=== PATIENT | male | born 1945 | race Caucasian/White ===

== ENCOUNTER 2017-12-30 16:47 | Emergency (ER) | payer BC, SELFPAY ==
[2017-12-30] VITALS (16 sets, daily range): BP systolic 164–192; BP diastolic 97–115; PULSE 58–69; RESP 11–23; TEMP 37.1; O2SAT 93–98
[2017-12-30 17:33] LABS: Abs Immature Grans 0.01 k/cumm (0.0-0.09); Absolute Basophil Count 0.03 k/cumm (0.0-0.2); Absolute Eosinophil Count 0.15 k/cumm (0.0-0.7); Absolute Lymphocyte Count 1.95 k/cumm (1.2-3.4); Absolute Monocyte Count 0.84 k/cumm (0.11-0.7); Basophils % 0.4; Eosinophils % 1.8; HCT 42.5 % (40.0-50.0); HGB 14.4 g/dL (13.5-17.5); Immature Grans % 0.1; Lymphocytes % 23.3; Mean Corp. HGB Concentration 33.9 g/dL (32.0-36.0); Mean Corpuscular Hemoglobin 32.3 pg (27.0-33.0); Mean Corpuscular Volume 95.3 fL (80-95); Mean Platelet Volume 9.4 fL (8.0-11.0); Neutrophils % 64.4; Platelet Count 220 x1000/uL (130-400); RBC 4.46 m/cumm (4.50-6.00); RBC Distribution Width 17.6 % (11.8-14.1); White Blood Cell Count 8.38 k/cumm (4.4-10.8)
[2017-12-30] MEDS: Normal Saline 500 ML 1000 ML IV (17:35)
[2017-12-30] MEDS: Meclizine 25 MG TAB PO (17:36)
[2017-12-30 17:51] LABS: ALT 26 U/L (12-78); AST 16 U/L (15-37); Albumin 3.7 g/dL (3.4-5.0); Alkaline Phosphatase 94 U/L (46-116); BUN 18 mg/dL (7-18); Bilirubin, Total 0.4 mg/dL (0.2-1.0); CREATININE 0.96 mg/dL (0.70-1.30); Calcium 8.9 mg/dL (8.5-10.1); Chloride 103 mmol/L (98-107); Glucose 159 mg/dL (70-100); Potassium 4.3 mmol/L (3.5-5.1); Sodium 139 mmol/L (136-145); TSH 2.41 uIU/mL (0.358-3.74); Total Protein 7.3 g/dL (6.4-8.2)
[2017-12-30 17:52] LABS: Troponin I < 0.02 ng/mL (0.00-0.06)
--- NOTE | 2017-12-30 18:45 | W.ED.GENAD ---
Discharge Plan Disposition Patient Disposition: HOME Condition: Good Discharge Details Chief Complaint: GenMedical Clinical Impression: Vertigo, Hypertension Primary Care Provider: Heriberto Fry ED Provider: Pasquale Gilliam Home Meds and New Rx's Prescriptions: New meclizine 25 mg tablet 25 mg PO TID Qty: 30 RF: 0 No Action ASPIRIN 81 MG tablet 1 tab PO DAILY RF: 0 glucosamine sulfate 500 MG tablet 4 tab PO DAILY RF: 0 omega-3 fatty acids-fish oil [Fish Oil] 1 EACH capsule 1 ea PO BID RF: 0 flaxseed 1,000 MG capsule 1,000 mg PO BID RF: 0 vitamin B complex 1 EACH capsule 1 ea PO DAILY RF: 0 magnesium oxide 500 MG capsule 500 mg PO DAILY RF: 0 sertraline 100 MG tablet 100 mg PO DAILY Qty: 90 RF: 3 levothyroxine 137 MCG tablet 137 mcg PO DAILY Qty: 90 RF: 3 omeprazole 20 MG capsule,delayed release(DR/EC) 20 mg PO DAILY Qty: 30 RF: 4 pravastatin 20 MG tablet 1 tab PO DAILY Qty: 90 RF: 3 losartan-hydrochlorothiazide [Hyzaar] 1 EACH tablet 1 tab PO DAILY Qty: 90 RF: 4 Metoprolol Succinate 50 MG TAB.ER.24H 1 tab PO DAILY Qty: 130 RF: 3 nicotine (polacrilex) [Nicorelief] 2 MG gum 1 ea PO PRN PRNRF: 0 varenicline [Chantix] 1 mg Tablet 1 mg PO DAILY RF: 0 Discharge Instructions Instructions: Vertigo (ED), Hypertension (ED) Additional Instructions: Please avoid salty foods, cut down on caffeine, and stay well-hydrated. Please take the meclizine as directed. Please follow-up with your ear doctor as soon as possible for reassessment. if you notice any worsening of your symptoms, or any new symptoms such as vomiting, diarrhea, fever, chills, shortness of breath, chest pain, numbness, weakness, or fainting , please return immediately to the emergency department for reevaluation. Please follow up with your primary care provider as soon as possible for reassessment and reevaluation. As always, it was a pleasure participating in your medical care today. Referrals: Heriberto Fry, [Primary Care Provider] - Discharge Data Discharge Date/Time-TO BE ENTERED AT DEPARTURE: 12/30/17 19:27 Medical Decision Making This is a pleasant 72-year-old male who presents for evaluation of dizziness and lightheadedness. Patient states that he noticed his blood pressure to be elevated earlier today, and he then had a relatively rapid onset of mild dizziness. It is worse with movement of his head to both the left and the right. He has horizontal fatigable nystagmus, he shows no neurologic deficits on exam. Patient's blood pressure was elevated initially when he came in, however his heart rate was stable. During his time here in the emergency department his blood pressure came down notably. Patient was given meclizine and had notable improvement of his symptoms. He was gently rehydrated. Laboratory workup, troponin, EKG were all within normal limits at the patient's baseline. 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 I feel that his endolymph is most likely affected by his high blood pressure and higher than normal salt content. With no signs of neurologic deficit, no chest pain, no arm neck shoulder pain. No abdominal pain or physical exam abnormalities I feel that he can be safely discharged home with close follow-up. 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 We long discussion regarding red flags which to return, foods for which to avoid, and the importance of adherence to his medication therapy. I have extensively reviewed the treatment plan and discharge instructions with the patient. I have addressed all patient concerns at this time. The patient was made aware of what symptoms to monitor for that would warrant a return to the emergency department. Discussed the plan with the patient, they demonstrate verbal understanding and agreement with our assessment and plan at this time. EK:56 Rate 61, intervals normal, sinus rhythm, RSR prime noted, no significant ST elevation or depression, no T wave inversions, no significant Q waves. EKG unchanged from prior EKG on June 17, 2017 HPI General Date/Time Provider Initiated Documentation: 12/30/17 17:10. HPI Narrative: This is a 72-year-old male with a past medical history of a abdominal aortic aneurysm which was repaired in June, hypertension, vertigo, thyroid disease. He is not on any blood thinners. He presents today for evaluation of dizziness. The patient states that roughly 6-10 hours ago the patient has been noticing that his blood pressure was slightly elevated. He did get up and move around and when he did he became very dizzy. It is worsened when he would turn his head rapidly from side to side. He had some associated lightheadedness but no syncope or near syncope. He denies any chest pain arm pain neck pain or shoulder pain. He denies any significant ringing in his ears. He denies any abdominal tenderness, or abdominal pain. The patient does have a history of vertigo and states that he has had symptoms very similar to this in the past. The patient does take his regular metoprolol and has not missed any doses however he does state that he has been eating multiple salty foods as of late. He denies any other complaints at this time. Related Data Home Medications Medication Instructions Recorded Confirmed Aspirin 1 tab PO DAILY 07/04/12 12/30/17 glucosamine sulfate 4 tab PO DAILY 07/04/12 12/30/17 nicotine (polacrilex) [Nicorelief] 1 ea PO PRN PRN 06/01/13 12/30/17 flaxseed 1,000 mg PO BID 07/27/15 12/30/17 omega-3 fatty acids-fish oil [Fish 1 ea PO BID 07/27/15 12/30/17 Oil] magnesium oxide 500 mg PO DAILY 09/06/15 12/30/17 vitamin B complex 1 ea PO DAILY 09/06/15 12/30/17 sertraline 100 mg PO DAILY #90 tab-cap 03/29/17 12/30/17 levothyroxine 137 mcg PO DAILY #90 tab-cap 06/04/17 12/30/17 omeprazole 20 mg PO DAILY #30 tab-cap 06/12/17 12/30/17 losartan-hydrochlorothiazide 1 tab PO DAILY #90 tab 06/26/17 12/30/17 [Hyzaar 100-12.5 Tablet] pravastatin 1 tab PO DAILY #90 tab 06/26/17 12/30/17 meclizine 25 mg PO TID #30 tab 12/30/17 varenicline [Chantix] 1 mg PO DAILY 12/30/17 12/30/17 Previous Rx's Medication Instructions Recorded sertraline 100 mg PO DAILY #90 tab-cap 03/29/17 levothyroxine 137 mcg PO DAILY #90 tab-cap 06/04/17 omeprazole 20 mg PO DAILY #30 tab-cap 06/12/17 losartan-hydrochlorothiazide 1 tab PO DAILY #90 tab 06/26/17 [Hyzaar 100-12.5 Tablet] pravastatin 1 tab PO DAILY #90 tab 06/26/17 meclizine 25 mg PO TID #30 tab 12/30/17 Allergies Allergy/AdvReac Type Severity Reaction Status Date / Time amoxicillin Allergy Unverified 12/30/17 16:56 General Stated Complaint: GenMedical BRAULIO: 3 Review of Systems Review of Systems All systems reviewed & are unremarkable except as noted in HPI and below PFSH Family History Mother No problems noted. Father No problems noted. Sister Heart disease Grandfather No problems noted. Social History Smoking/Tobacco Use Status: Former Tobacco Use Surgical History Repair of inguinal hernia (~1994) Stent placement (~03/2011) Transurethral prostatectomy (~2000) thyroidectomy (~2002) Exam Narrative Exam Narrative: 1.Const: Well-nourished, Well-developed, appearing stated age 2.Eyes: PERRL, no conjunctival injection, and symmetrical lids. Mild horizontal, fatigable nystagmus. No rotatory or vertical nystagmus. 3.ENT: Atraumatic external nose and ears. Moist MM. Neck: Symmetric, trachea midline, No thyromegaly. 4.CVS: +S1/S2, No murmurs or gallops. Peripheral pulses 2+ and equal in all extremities. Brisk capillary refill in all extremities. No carotid bruits. Radial pulses +2 bilaterally. 5.RESP: Unlabored respiratory effort. Clear to auscultation bilaterally. No wheezes rales or rhonchi 6.GI: Soft, Nontender/Nondistended, No hepatosplenomegaly. No guarding or rebound. Notable well-healing abdominal scar. No bulge in his abdomen, no pulsatile mass. No abdominal tenderness. 7.MSK: Normocephalic/Atraumatic, Extremities w/o deformity or ttp No cyanosis or clubbing, Normal movement of all extremities 8.Skin: Warm, Dry. No rashes or lesions. 9.Neuro: patient portal concierge II-XII grossly intact. Sensation grossly intact, no focal neurologic deficits. All 6 cardinal planes of vision or fully intact. No evidence of horizontal or vertical nystagmus. The patient demonstrated a normal ckwfrc-edkq-inxgpp, good dexterity. There was no evidence of dysdiadochokinesia. Patient was able to ambulate without difficulty. There was no wide-based gait. Romberg, and mfin-zd-bnpt are both normal on testing. Sensation was intact bilaterally as well as muscle strength bilaterally for all extremities. Patient was able to verbalize butter cup with no slurring, or miss pronunciation. Cerebellar function testing is normal. The patient demonstrates a normal hints exam with no findings concerning for a central event. No vertical nystagmus. The head impulse test is negative for any significant central abnormality. Normal test of skew. No suggestion of a central cerebellar event. 10.Psych: (AAO) x3. Appropriate mood and affect Course Vital Signs Pulse 60 12/30/17 16:52 Blood Pressure 190/106 H 12/30/17 16:52 Pulse Oximetry 96 12/30/17 16:52 Temperature 37.1 C 12/30/17 16:54 Temperature Source Skin 12/30/17 16:54 Pulse 62 12/30/17 17:46 Pulse 65 12/30/17 17:50 Respiratory Rate 23 12/30/17 17:50 Respiratory Effort 12/30/17 17:39 Respiratory Depth Normal 12/30/17 17:39 Respiratory Pattern Normal 12/30/17 17:39 Blood Pressure 182/100 H 12/30/17 17:46 Blood Pressure Mean 120 12/30/17 17:46 Pulse Oximetry 96 12/30/17 17:50 Oxygen Delivery Method Room Air 12/30/17 16:54 Oxygen Flow Rate 0 12/30/17 16:54 Pain Level 0 12/30/17 18:06 Lab/Test Results Lab/Test Results: Laboratory Tests Range/Units 12/30/17 12/30/17 17:20 17:20 WBC (4.4-10.8) k/cumm 8.38 RBC (4.50-6.00) m/cumm 4.46 L Hgb (13.5-17.5) g/dL 14.4 Hct (40.0-50.0) % 42.5 MCV (80-95) fL 95.3 H MCH (27.0-33.0) pg 32.3 MCHC (32.0-36.0) g/dL 33.9 RDW (11.8-14.1) % 17.6 H Plt Count (130-400) x1000/uL 220 MPV (8.0-11.0) fL 9.4 Immature Gran % 0.1 Neutrophils % 64.4 Lymphocytes % 23.3 Monocytes % 10.0 Eosinophils % 1.8 Basophils % 0.4 Absolute Neutrophils (1.2-6.7) k/cumm 5.40 Absolute Lymphocytes (1.2-3.4) k/cumm 1.95 Absolute Monocytes (0.11-0.7) k/cumm 0.84 H Absolute Eosinophils (0.0-0.7) k/cumm 0.15 Absolute Basophils (0.0-0.2) k/cumm 0.03 Sodium (136-145) mmol/L 139 Potassium (3.5-5.1) mmol/L 4.3 Chloride (98-107) mmol/L 103 Carbon Dioxide (21.0-32.0) mmol/L 29.0 Anion Gap (3-11) mmol/L 7.0 BUN (7-18) mg/dL 18 Creatinine (0.70-1.30) mg/dL 0.96 Estimated GFR/1.73 m2 (mL/min/1.73m2) >= 60.00 Glucose (70-100) mg/dL 159 H Calcium (8.5-10.1) mg/dL 8.9 Total Bilirubin (0.2-1.0) mg/dL 0.4 AST (15-37) U/L 16 ALT (12-78) U/L 26 Alkaline Phosphatase (46-116) U/L 94 Troponin I (0.00-0.06) ng/mL < 0.02 Total Protein (6.4-8.2) g/dL 7.3 Albumin (3.4-5.0) g/dL 3.7 TSH (0.358-3.74) uIU/mL 2.41
== END 2017-12-30 19:27 | disposition home or self-care (01) ==
PROVIDERS: Emergency Provider Student in an Organized Health Care Education/Training Program; PCP Emergency Medicine
DX: R42 Dizziness and giddiness (principal); I10 Essential (primary) hypertension
CPT/HCPCS: 36415; 80053; 93005; 99284; 84443; 84484; 85025; 93010; 99285

== ENCOUNTER 2018-02-03 08:18 | Outpatient (CLI) | payer BC, SELFPAY ==
[2018-02-03 10:43] LABS: Anion Gap 8.6 mmol/L (3-11); BUN 16 mg/dL (7-18); CO2 28.4 mmol/L (21.0-32.0); CREATININE 1.02 mg/dL (0.70-1.30); Calcium 9.1 mg/dL (8.5-10.1); Chloride 102 mmol/L (98-107); Glucose 102 mg/dL (70-100); Potassium 4.6 mmol/L (3.5-5.1); Sodium 139 mmol/L (136-145)
[2018-02-03 12:10] LABS: Hemoglobin A1C 6.1 % (4.5-6.2)
== END 2018-02-03 08:38 ==
PROVIDERS: PCP Emergency Medicine; Visit Provider Emergency Medicine
DX: R73.09 Other abnormal glucose (principal); I10 Essential (primary) hypertension
CPT/HCPCS: 36415; 80048; 83036

== ENCOUNTER 2018-02-10 09:06 | Outpatient (REF) | payer BC, SELFPAY ==
[2018-02-12 11:53] LABS: Campylobacter PCR SEE COMMENTS; Salmonella PCR SEE COMMENTS; Shiga Toxin PCR SEE COMMENTS; Shigella/Enteroinvasive Ecoli SEE COMMENTS
== END 2018-02-10 09:26 ==
LOC: LBN 09:06
PROVIDERS: PCP Emergency Medicine; Visit Provider Nurse Practitioner Family
DX: R19.7 Diarrhea, unspecified (principal)
CPT/HCPCS: 87329; 87505

== ENCOUNTER 2018-02-14 11:13 | Outpatient (CLI) | payer BC, SELFPAY ==
--- NOTE | 2018-02-14 10:15 | DI.RAD_ITS ---
SYMPTOMS/DIAGNOSIS: ABDOMINAL BLOATING, HEMATOCHEZIA, R19.7, DIARRHEA, AAA REPAIR 8 MONTHS AGO FLAT AND UPRIGHT ABDOMEN: Routine examination. Comparison chest x-ray is 06/17/17. The lung bases are clear. There is an aortoiliac stent in place. Vascular coils are also seen in the abdomen. No organomegaly or pneumoperitoneum is seen. The bowel gas pattern is nonspecific. No evidence of obstruction is seen. There is a moderate amount of retained stool throughout the colon. Degenerative changes are seen in the spine. IMPRESSION: Moderate amount of retained stool. No evidence of an acute abdomen.
== END 2018-02-14 11:33 ==
PROVIDERS: PCP Emergency Medicine; Visit Provider Nurse Practitioner Family
DX: R14.0 Abdominal distension (gaseous) (principal); R19.7 Diarrhea, unspecified; K92.1 Melena; K59.00 Constipation, unspecified
CPT/HCPCS: 74019

== ENCOUNTER 2018-08-08 11:27 | Outpatient (CLI) | payer BC, SELFPAY ==
[2018-08-08 13:21] LABS: TSH 0.94 uIU/mL (0.358-3.74)
[2018-08-11 11:13] LABS: PSA, Screening 1.2 ng/ml (0-6.5)
== END 2018-08-08 11:47 ==
PROVIDERS: PCP Emergency Medicine; Visit Provider Emergency Medicine
DX: Z12.5 Encounter for screening for malignant neoplasm of prostate (principal); E03.9 Hypothyroidism, unspecified
CPT/HCPCS: 36415; 84153; 84443

== ENCOUNTER 2018-08-24 08:26 | Emergency (ER) | payer BC, MEDICARE, SELFPAY ==
[2018-08-24] VITALS (14 sets, daily range): BP systolic 63–86; BP diastolic 38–59; PULSE 63–101; RESP 11–44; TEMP 36.2; O2SAT 94–99
[2018-08-24] MEDS: Normal Saline 1,000 ML 1000 ML IV (08:30)
[2018-08-24 08:36] LABS: Abs Immature Grans 0.02 k/cumm (0.0-0.09); Absolute Basophil Count 0.05 k/cumm (0.0-0.2); Absolute Eosinophil Count 0.18 k/cumm (0.0-0.7); Absolute Lymphocyte Count 3.19 k/cumm (1.2-3.4); Absolute Monocyte Count 0.67 k/cumm (0.11-0.7); Absolute Neutrophil Count 2.93 k/cumm (1.2-6.7); Basophils % 0.7; Eosinophils % 2.6; HCT 42.4 % (40.0-50.0); HGB 14.2 g/dL (13.5-17.5); Immature Grans % 0.3; Lymphocytes % 45.3; Mean Corp. HGB Concentration 33.5 g/dL (32.0-36.0); Mean Corpuscular Hemoglobin 33.6 pg (27.0-33.0); Mean Corpuscular Volume 100.5 fL (80-95); Mean Platelet Volume 9.3 fL (8.0-11.0); Monocytes % 9.5; Neutrophils % 41.6; Platelet Count 215 x1000/uL (130-400); RBC 4.22 m/cumm (4.50-6.00); RBC Distribution Width 14.2 % (11.8-14.1); White Blood Cell Count 7.04 k/cumm (4.4-10.8)
[2018-08-24 08:54] LABS: Troponin I 0.05 ng/mL (0.00-0.06)
[2018-08-24 09:01] LABS: ALT 37 U/L (12-78); AST 29 U/L (15-37); Albumin 3.1 g/dL (3.4-5.0); Alkaline Phosphatase 63 U/L (46-116); Anion Gap 14.6 mmol/L (3-11); BUN 23 mg/dL (7-18); Bilirubin, Total 0.8 mg/dL (0.2-1.0); CO2 19.4 mmol/L (21.0-32.0); CREATININE 1.41 mg/dL (0.70-1.30); Calcium 8.2 mg/dL (8.5-10.1); Chloride 105 mmol/L (98-107); Glucose 289 mg/dL (70-100); Potassium 3.5 mmol/L (3.5-5.1); Sodium 139 mmol/L (136-145)
--- NOTE | 2018-08-24 09:17 | DI.VRAD_ITS ---
EXAM: CT Angiography Chest With Contrast EXAM DATE/TIME: 08/24/2018 8:32 AM CLINICAL HISTORY: 73 years old, male; Chest pain; Type not specified; Patient HX: Patient unable to give clinical HX, best images obtained due to patient condition, aaa R/O rupture per er doctor. TECHNIQUE: Imaging protocol: Axial computed tomographic angiography images of the chest with intravenous contrast using CT angiography protocol. 3D rendering: MIP reconstructed images were created and reviewed. Radiation optimization: All CT scans at this facility use at least one of these dose optimization techniques: automated exposure control; mA and/or kV adjustment per patient size (includes targeted exams where dose is matched to clinical indication); or iterative reconstruction. Contrast material: OMNIPAQUE 350; Contrast volume: 100 ml; Contrast route: IV; COMPARISON: CT CHEST WITH CONTRAST 10/18/2015 1:38 PM FINDINGS: Pulmonary arteries: Normal. No pulmonary emboli. 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 Ascending aorta with intramural hematoma measures 4.4 cm. Lungs: Mild opacities in the lower lobes may represent atelectasis or pneumonia. Pleural space: Normal. No pneumothorax. No pleural effusion. Heart: Anterior pericardial effusion 23 mm. Coronary artery calcifications may indicate coronary artery disease Lymph nodes: Unremarkable. No enlarged lymph nodes. Bones/joints: Unremarkable. No acute fracture. Soft tissues: Unremarkable. THIS REPORT CONTAINS FINDINGS THAT MAY BE CRITICAL TO PATIENT CARE. The findings were verbally communicated via telephone conference with nurse practitioner Fara at 9:07 AM EDT on 08/24/2018. The findings were acknowledged and understood. IMPRESSION: 1. 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 Ascending aorta with intramural hematoma measures 4.4 cm. 2. Anterior pericardial effusion 23 mm. EXAM: CT Angiography Abdomen and Pelvis With Contrast EXAM DATE/TIME: 08/24/2018 8:32 AM CLINICAL HISTORY: 73 years old, male; Chest pain; Type not specified; Patient HX: Patient unable to give clinical HX, best images obtained due to patient condition, aaa R/O rupture per er doctor. TECHNIQUE: Imaging protocol: Axial computed tomographic angiography images of the abdomen and pelvis with intravenous contrast material. 3D rendering: MIP reconstructed images were created and reviewed. Radiation optimization: All CT scans at this facility use at least one of these dose optimization techniques: automated exposure control; mA and/or kV adjustment per patient size (includes targeted exams where dose is matched to clinical indication); or iterative reconstruction. COMPARISON: CT CHEST WITH CONTRAST 10/18/2015 1:38 PM FINDINGS: VASCULATURE: Aorta: [place] infrarenal abdominal aortic film aneurysm measures 7.6 x 6.8 cm. Celiac trunk and mesenteric arteries: No occlusion or significant stenosis. Renal arteries: No occlusion or significant stenosis. Right iliac arteries: No occlusion or significant stenosis. Left iliac arteries: No occlusion or significant stenosis. Bypass grafts: Status post bypass of the infrarenal abdominal aortic aneurysm. [place] aneurysm measures 7.6 x 6.8 cm. ABDOMEN: Liver: No mass. Gallbladder and bile ducts: Unremarkable. No calcified stones. No ductal dilation. Pancreas: Unremarkable. No mass. No ductal dilation. Spleen: Unremarkable. No splenomegaly. Adrenals: Unremarkable. No mass. Kidneys and ureters: Unremarkable. No solid mass. No hydronephrosis. Stomach and bowel: Findings consistent with constipation Diverticulosis of the rectosigmoid. No diverticulitis. Appendix: No evidence of appendicitis. PELVIS: Bladder: Unremarkable. No mass. Reproductive: Unremarkable as visualized. ABDOMEN and PELVIS: Intraperitoneal space: Unremarkable. No free air. No significant fluid collection. Bones/joints: No acute fracture. No dislocation. Soft tissues: Unremarkable. Lymph nodes: Unremarkable. No enlarged lymph nodes. IMPRESSION: Status post bypass of the infrarenal abdominal aortic aneurysm. [place] aneurysm measures 7.6 x 6.8 cm. Dictated and Authenticated by: Ragini Bruce MD. Ordering:ERIC Giordano MD
--- NOTE | 2018-08-24 09:19 | DI.RAD_ITS ---
SYMPTOMS/DIAGNOSIS: CENTRAL LINE PLACEMENT PORTABLE AP CHEST: Comparison with CT scan of the chest from the same day. There is prominence of the superior mediastinum consistent with the patient's known ascending aortic dissection. The heart size is mildly enlarged. No pleural effusion, pneumothorax or pulmonary infiltrates are seen. There is a right internal jugular central venous catheter with its tip in the superior vena cava.
--- NOTE | 2018-08-24 09:20 | DI.CT_ITS ---
SYMPTOMS/DIAGNOSIS: STROKE, AAA, ? RUPTURE CT SCAN OF THE HEAD: The examination was performed following a CT angiography of the chest, abdomen and pelvis. Therefore this is a post contrast CT head. No intracranial hemorrhage, midline shift or mass effect is identified. The ventricles are intact. The basilar cisterns are patent. Again related cerebral atrophy and small vessel ischemic disease is noted. There is a mucous retention cyst or polyp in the left maxillary sinus. The remaining visualized paranasal sinuses are clear. The mastoid air cells are well pneumatized. The calvarium is intact. IMPRESSION: No acute intracranial process. CT ANGIOGRAPHY OF THE CHEST: CT angiography was performed with multi slice acquisition and multi planar and 3D reconstruction. There is an intramural hematoma in the ascending aorta. The ascending aorta measures 4.4 cm. There is a pericardial effusion measuring 2.3 cm in diameter. The heart is otherwise unremarkable. No significant thoracic adenopathy is seen. No pleural effusion or pneumothorax is identified. Moderate emphysematous changes are seen throughout the lungs. There are bilateral atelectatic changes in the lung bases. IMPRESSION: Intramural hematoma in the ascending aorta suggesting a type A dissection of the ascending aorta. The ascending aorta measures 4.4 cm. 2. Anterior pericardial effusion measuring 2.[address] ANGIOGRAPHY OF THE ABDOMEN AND PELVIS: Comparison CT scan is 02/17/18. The liver is grossly unremarkable as are the gallbladder, pancreas, spleen and adrenal glands. The kidneys show no evidence of obstruction. The urinary bladder is intact. The reproductive organs are unremarkable. There is again seen an aorta bifem-bypass which appears stable. [place] infrarenal abdominal aortic aneurysm measures 7.6 x 6.8 cm. The celiac axis and superior and mesenteric arteries are unremarkable as are the renal arteries and iliac arteries. No occlusion or significant stenosis is present. There is diverticulosis of the colon but no evidence of acute diverticulitis. The bowel is otherwise unremarkable. No significant abdominal or pelvic adenopathy, ascites or pneumoperitoneum is present. IMPRESSION: Again seen status post aorta bifem-bypass with a [place] infrarenal abdominal aortic aneurysm measuring 7.6 x 6.8 cm.
--- NOTE | 2018-08-24 09:21 | DI.VRAD_ITS ---
EXAM: CT Head Without Contrast EXAM DATE/TIME: 08/24/2018 8:57 AM CLINICAL HISTORY: 73 years old, male; Signs and symptoms; Other: Stroke; Patient HX: Patient unable to give clinical HX. TECHNIQUE: Imaging protocol: Axial computed tomography images of the head without contrast. Coronal and sagittal reformatted images were created and reviewed. Radiation optimization: All CT scans at this facility use at least one of these dose optimization techniques: automated exposure control; mA and/or kV adjustment per patient size (includes targeted exams where dose is matched to clinical indication); or iterative reconstruction. Other technique: STROKE PROTOCOL was implemented. COMPARISON: CT HEAD WITHOUT CONTRAST 08/31/2016 8:38 AM FINDINGS: Brain: No acute intracranial hemorrhage. There is mild diffuse heterogeneity of the white matter attenuation, consistent with chronic white matter ischemic changes. Mild cerebral atrophy Ventricles: Normal. No ventriculomegaly. Bones/joints: Unremarkable. No acute fracture. Sinuses: 14 mm Polyp in the left maxillary sinus Mastoid air cells: Visualized mastoid air cells are well aerated. No mastoid effusion. Soft tissues: Unremarkable. Other findings: This is actually CT head with contrast after the CTA chest for dissection. IMPRESSION: 1. This is actually CT head with contrast after the CTA chest for dissection. 2. No acute intracranial hemorrhage. ASSESSMENT: ASPECTS ([place] Stroke Program Early CT Score) is 10 Dictated and Authenticated by: Ragini Bruce MD. Ordering:BARB Borja MD
--- NOTE | 2018-08-24 09:29 | W.ED.GENAD ---
Discharge Plan Disposition Patient Disposition: [facility] Condition: Critical Discharge Details Chief Complaint: Abd Prob Clinical Impression: AAA (abdominal aortic aneurysm), Aortic aneurysm and dissection, Shock Primary Care Provider: Heriberto Fry ED Provider: Pasquale Gilliam Home Meds and New Rx's Prescriptions: No Action Culturelle Kids Probiotics 5 billion cell tablet,chewable 5,000 mmu cells PO DAILY RF: 0 ASPIRIN 81 MG tablet 1 tab PO DAILY RF: 0 omega-3 fatty acids-fish oil [Fish Oil] 1 EACH capsule 1 ea PO BID RF: 0 vitamin B complex 1 EACH capsule 1 ea PO DAILY RF: 0 losartan-hydrochlorothiazide [Hyzaar] 1 EACH tablet 1 tab PO DAILY Qty: 90 RF: 4 Metoprolol Succinate 50 MG TAB.ER.24H 1 tab PO DAILY Qty: 130 RF: 3 levothyroxine 137 mcg tablet 137 mcg PO DAILY Qty: 90 RF: 3 pravastatin 20 mg tablet 20 mg PO DAILY Qty: 90 RF: 3 sertraline 100 mg tablet 100 mg PO DAILY Qty: 90 RF: 0 glucosamine sulfate 500 mg tablet 2,000 mg PO DAILY RF: 0 magnesium oxide 500 mg Tablet 500 mg PO DAILY RF: 0 Discharge Data Discharge Date/Time-TO BE ENTERED AT DEPARTURE: 08/24/18 09:53 Medical Decision Making Upon my evaluation, this patient had a high probability of imminent or life-threatening deterioration, which required my direct attention, intervention, and personal management. I have personally provided 76 minutes of critical care time exclusive of time spent on separately billable procedures. Time includes review of laboratory data, radiology results, discussion with consultants, and monitoring for potential decompensation. Interventions were performed as documented above. 73-year-old male with a past medical history of multiple AAA repairs, presents today for evaluation of sudden onset abdominal pain, syncope, and acute distress. EMS brought the patient in after initial 911 call for the symptoms. Upon arrival blood pressure was in the 60s systolic after 500 cc bolus. 2 large-bore IVs were established, bedside ultrasound was concerning for AAA rupture, massive transfusion was started immediately, patient was sent to CT scan, personal review of CT scan demonstrates evidence of rupture of AAA with dissection. [facility] was immediately contacted as well as [facility] for emergent transfer. Case was discussed with Dr.Tianna of vascular surgery in the emergency department. They agreed with the current plan recommended immediate transfer which was already underway. At this point patient has received 4 units of PRBCs, FFP will be added, massive transfusion protocol will continue. Systolic is slightly increased with the patient's PRBCs, currently he is in the 70s, map is 61-68. The patient's mentation is notably improved, and he is maintaining his airway. Oxygen saturation is stable. We will hold off on intubation out of concern for the risk of rapid vascular and pressure decompensation. [facility] does agree with this plan at this. Case has been discussed with the family. Patient will be transferred via dart immediately to [facility] for surgical management. Procedure: Internal Jugular Central Venous Catheter Indication: Hemodynamic monitoring/Intravenous access PROCEDURE SUMMARY: A time-out was performed. The patient?s right neck region was prepped and draped in sterile fashion using chlorhexidine scrub. Anesthesia was achieved with 1% lidocaine. The internal jugular vein was accessed under ultrasound guidance using a finder needle.Venous blood was withdrawn. A guidewire was advanced through the needle. A small incision was made with a 10 blade scalpel and the dilator was advanced over the guidewire until appropriate dilation was obtained. The dilator was removed and a cordis catheter was advanced and secured into place with 1 simple interrupted sutures. At time of procedure completion, all ports aspirated and flushed properly. Post-procedure x-ray shows the tip of the catheter within the superior vena cava. ESTIMATED BLOOD LOSS: 5ml?s The patient tolerated the procedure well there were no complications. Impression: 1. 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 Ascending aorta with intramural hematoma measures 4.4 cm. 2. Anterior pericardial effusion 23 mm. Exam: CT Angiography Abdomen and Pelvis With Contrast EXAM DATE/TIME: 08/24/2018 8:32 AM CLINICAL HISTORY: 73 years old, male; Chest pain; Type not specified; Patient HX: Patient unable to give clinical HX, best images obtained due to patient condition, aaa R/O rupture per er doctor. Technique: Imaging protocol: Axial computed tomographic angiography images of the abdomen and pelvis with intravenous contrast material. 3D rendering: MIP reconstructed images were created and reviewed. Radiation optimization: All CT scans at this facility use at least one of these dose optimization techniques: automated exposure control; mA and/or kV adjustment per patient size (includes targeted exams where dose is matched to clinical indication); or iterative reconstruction. Comparison: CT CHEST WITH CONTRAST 10/18/2015 1:38 PM Findings: VASCULATURE: Aorta: Eek infrarenal abdominal aortic film aneurysm measures 7.6 x 6.8 cm. Celiac trunk and mesenteric arteries: No occlusion or significant stenosis. Renal arteries: No occlusion or significant stenosis. Right iliac arteries: No occlusion or significant stenosis. Left iliac arteries: No occlusion or significant stenosis. Bypass grafts: Status post bypass of the infrarenal abdominal aortic aneurysm. Eek aneurysm measures 7.6 x 6.8 cm. ABDOMEN: Liver: No mass. Gallbladder and bile ducts: Unremarkable. No calcified stones. No ductal dilation. Pancreas: Unremarkable. No mass. No ductal dilation. Spleen: Unremarkable. No splenomegaly. Adrenals: Unremarkable. No mass. Kidneys and ureters: Unremarkable. No solid mass. No hydronephrosis. Stomach and bowel: Findings consistent with constipation Diverticulosis of the rectosigmoid. No diverticulitis. Appendix: No evidence of appendicitis. PELVIS: Bladder: Unremarkable. No mass. Reproductive: Unremarkable as visualized. ABDOMEN and PELVIS: Intraperitoneal space: Unremarkable. No free air. No significant fluid collection. Bones/joints: No acute fracture. No dislocation. Soft tissues: Unremarkable. Lymph nodes: Unremarkable. No enlarged lymph nodes. Impression: Status post bypass of the infrarenal abdominal aortic aneurysm. Eek aneurysm measures 7.6 x 6.8 cm. Dictated and Authenticated by: Ragini Bruce MD. Ordering:ERIC Giordano MD HPI General Date/Time Provider Initiated Documentation: 08/24/18 08:29. HPI Narrative: This is a 73-year-old male with a AAA that was repaired multiple times in the past most recent time 2 years ago who presents today for acute severe abdominal pain, syncope and hypotension. Symptoms began this morning when he woke up. He did do a significant amount of raking and shoveling yesterday. EMS reported a notably unstable patient, large-bore IVs were started, fluid bolus was started in the field. The patient denies any other complaints at this time. He denies any chest pain headache or focal weakness. No other modifying factors. He is on no blood thinners but he did take his daily aspirin this morning. Previous AAA repair was at [facility]. Related Data Home Medications Medication Instructions Recorded Confirmed Aspirin 1 tab PO DAILY 07/04/12 08/24/18 omega-3 fatty acids-fish oil [Fish 1 ea PO BID 07/27/15 08/24/18 Oil] vitamin B complex 1 ea PO DAILY 09/06/15 08/24/18 losartan-hydrochlorothiazide 1 tab PO DAILY #90 tab 06/26/17 08/24/18 [Hyzaar 100-12.5 Tablet] levothyroxine 137 mcg tablet 137 mcg PO DAILY #90 tab-cap 05/29/18 08/24/18 pravastatin 20 mg tablet 20 mg PO DAILY #90 tab 06/30/18 08/24/18 sertraline 100 mg tablet 100 mg PO DAILY #90 tab-cap 06/30/18 08/24/18 Lactobacillus rhamnosus GG 5 5,000 mmu cells PO DAILY tab 08/08/18 08/24/18 billion cell chewable tablet glucosamine sulfate 500 mg tablet 2,000 mg PO DAILY tab 08/08/18 08/24/18 magnesium oxide 500 mg PO DAILY 08/24/18 08/24/18 Previous Rx's Medication Instructions Recorded losartan-hydrochlorothiazide 1 tab PO DAILY #90 tab 06/26/17 [Hyzaar 100-12.5 Tablet] levothyroxine 137 mcg tablet 137 mcg PO DAILY #90 tab-cap 05/29/18 pravastatin 20 mg tablet 20 mg PO DAILY #90 tab 06/30/18 sertraline 100 mg tablet 100 mg PO DAILY #90 tab-cap 06/30/18 Allergies Allergy/AdvReac Type Severity Reaction Status Date / Time amoxicillin Allergy Verified 08/24/18 10:49 General BRAULIO: 3 Review of Systems Review of Systems All systems reviewed & are unremarkable except as noted in HPI and below PFSH Medical History Tinea pedis (Chronic) Spinal stenosis (Chronic) Right hydrocele (Chronic 07/27/15) Rectal hemorrhage (Chronic 02/28/03) Raised prostate specific antigen (Chronic 02/29/00) Polyp of colon (Chronic 06/01/13) Peripheral neuralgia (Chronic) Non-toxic multinodular goiter (Chronic 02/28/02) Nicotine dependence (Chronic) Hypothyroidism (Chronic 07/28/12) Hyperlipidemia (Chronic) History of tobacco use (Chronic) Headache (Chronic) Essential hypertension (Chronic 01/12/13) Diverticulosis of colon without diverticulitis (Chronic) Depressive disorder (Chronic) Centrilobular emphysema (Chronic 01/04/16) Bilateral inguinal hernia (Chronic) Aortic aneurysm (Chronic) Anal polyp (Chronic) Surgical History S/P AAA repair (Chronic) Repair of inguinal hernia (~1994) Stent placement (~03/2011) Transurethral prostatectomy (~2000) thyroidectomy (~2002) Family History Mother No problems noted. Father No problems noted. Sister Heart disease Maternal Grandfather No problems noted. Son No problems noted. Social History Smoking/Tobacco Use Status: Former Tobacco Use Quit Date: 04/01/98 Tobacco: How many years used: 40 Alcohol Intake: current Alcohol Intake frequency: holidays/special occasions only Drug use: Never Substance use type: does not use Caregiver/Support person: No Household members: spouse Housing: house Communication Needs: None Do you need help understanding health information?: Rarely Pets and animals: No Sexually active: No Do you think of yourself as: straight/heterosexual Current gender identity: male What is your relationship status?: How often do you talk on the phone with friends or family?: three or more times per week How often do you get together with friends or relatives?: decline to answer How often do you attend nondenominational or hindu services?: 1-3 times per year Do you belong to any clubs or organized social groups?: yes Panel score (0-1 are the most socially isolated patients): 3 What type of physical activity do you participate in: other Details: Wellness program Duration: 45-60 minutes/day Frequency: 3-4 times per week Denita/Moravian: Jainism Special denita needs: No Seatbelt use: always Helmet use: Yes Helmet use: always Drive intox or ride w/intox customer service driver: No Do you feel safe at home: Yes Do you feel safe in your relationship?: Yes Exam Narrative Exam Narrative: 1.Const: Active acute distress, 2.Eyes: PERRL, no conjunctival injection, and symmetrical lids. 3.ENT: Atraumatic external nose and ears. Moist MM. Neck: Symmetric, trachea midline, No thyromegaly. 4.CVS: +S1/S2, Radial pulse on the right +2, radial pulse +1 on the left. Dorsalis pedis faint bilaterally. Delayed capillary refill at the toes 5.RESP: Labored respiratory effort, no wheezes rales or rhonchi. 6.GI: mild distention in the lower abdomen, notably tender throughout. Questionable pulsatile mass 7.MSK: Normocephalic/Atraumatic, Extremities w/o deformity, notable cyanosis of the upper extremities and head., Normal movement of all extremities 8.Skin: dry, pale, diaphoretic 9.Neuro: manager air II-XII grossly intact. Sensation grossly intact, no focal neurologic deficits. 10.Psych: In active distress and extremitas Course Lab/Test Results Lab/Test Results: Laboratory Tests Range/Units 08/24/18 08/24/18 08/24/18 08:30 08:30 08:35 WBC (4.4-10.8) k/cumm 7.04 RBC (4.50-6.00) m/cumm 4.22 L Hgb (13.5-17.5) g/dL 14.2 Hct (40.0-50.0) % 42.4 MCV (80-95) fL 100.5 H MCH (27.0-33.0) pg 33.6 H MCHC (32.0-36.0) g/dL 33.5 RDW (11.8-14.1) % 14.2 H Plt Count (130-400) x1000/uL 215 MPV (8.0-11.0) fL 9.3 Immature Gran % 0.3 Neutrophils % 41.6 Lymphocytes % 45.3 Monocytes % 9.5 Eosinophils % 2.6 Basophils % 0.7 Absolute Neutrophils (1.2-6.7) k/cumm 2.93 Absolute Lymphocytes (1.2-3.4) k/cumm 3.19 Absolute Monocytes (0.11-0.7) k/cumm 0.67 Absolute Eosinophils (0.0-0.7) k/cumm 0.18 Absolute Basophils (0.0-0.2) k/cumm 0.05 Sodium (136-145) mmol/L 139 Potassium (3.5-5.1) mmol/L 3.5 Chloride (98-107) mmol/L 105 Carbon Dioxide (21.0-32.0) mmol/L 19.4 L Anion Gap (3-11) mmol/L 14.6 H BUN (7-18) mg/dL 23 H Creatinine (0.70-1.30) mg/dL 1.41 H Estimated GFR/1.73 m2 (mL/min/1.73m2) 49.00 Glucose (70-100) mg/dL 289 H Calcium (8.5-10.1) mg/dL 8.2 L Total Bilirubin (0.2-1.0) mg/dL 0.8 AST (15-37) U/L 29 ALT (12-78) U/L 37 Alkaline Phosphatase (46-116) U/L 63 Troponin I (0.00-0.06) ng/mL Total Protein (6.4-8.2) g/dL 6.0 L Albumin (3.4-5.0) g/dL 3.1 L Patient ABO/Rh O Positive Antibody Screen Negative Crossmatch See Detail Range/Units 08/24/18 08:35 WBC (4.4-10.8) k/cumm RBC (4.50-6.00) m/cumm Hgb (13.5-17.5) g/dL Hct (40.0-50.0) % MCV (80-95) fL MCH (27.0-33.0) pg MCHC (32.0-36.0) g/dL RDW (11.8-14.1) % Plt Count (130-400) x1000/uL MPV (8.0-11.0) fL Immature Gran % Neutrophils % Lymphocytes % Monocytes % Eosinophils % Basophils % Absolute Neutrophils (1.2-6.7) k/cumm Absolute Lymphocytes (1.2-3.4) k/cumm Absolute Monocytes (0.11-0.7) k/cumm Absolute Eosinophils (0.0-0.7) k/cumm Absolute Basophils (0.0-0.2) k/cumm Sodium (136-145) mmol/L Potassium (3.5-5.1) mmol/L Chloride (98-107) mmol/L Carbon Dioxide (21.0-32.0) mmol/L Anion Gap (3-11) mmol/L BUN (7-18) mg/dL Creatinine (0.70-1.30) mg/dL Estimated GFR/1.73 m2 (mL/min/1.73m2) Glucose (70-100) mg/dL Calcium (8.5-10.1) mg/dL Total Bilirubin (0.2-1.0) mg/dL AST (15-37) U/L ALT (12-78) U/L Alkaline Phosphatase (46-116) U/L Troponin I (0.00-0.06) ng/mL 0.05 Total Protein (6.4-8.2) g/dL Albumin (3.4-5.0) g/dL Patient ABO/Rh Antibody Screen Crossmatch
--- NOTE | 2018-08-24 09:40 | ED.GENADUL_ITS ---
Discharge Plan Disposition Patient Disposition: [facility] Condition: Critical Discharge Details Chief Complaint: Abd Prob Clinical Impression: AAA (abdominal aortic aneurysm), Aortic aneurysm and dissection, Shock Primary Care Provider: Heriberto Fry ED Provider: Pasquale Gilliam Home Meds and New Rx's Prescriptions: No Action Culturelle Kids Probiotics 5 billion cell tablet,chewable 5,000 mmu cells PO DAILY RF: 0 ASPIRIN 81 MG tablet 1 tab PO DAILY RF: 0 omega-3 fatty acids-fish oil [Fish Oil] 1 EACH capsule 1 ea PO BID RF: 0 vitamin B complex 1 EACH capsule 1 ea PO DAILY RF: 0 losartan-hydrochlorothiazide [Hyzaar] 1 EACH tablet 1 tab PO DAILY Qty: 90 RF: 4 Metoprolol Succinate 50 MG TAB.ER.24H 1 tab PO DAILY Qty: 130 RF: 3 levothyroxine 137 mcg tablet 137 mcg PO DAILY Qty: 90 RF: 3 pravastatin 20 mg tablet 20 mg PO DAILY Qty: 90 RF: 3 sertraline 100 mg tablet 100 mg PO DAILY Qty: 90 RF: 0 glucosamine sulfate 500 mg tablet 2,000 mg PO DAILY RF: 0 magnesium oxide 500 mg Tablet 500 mg PO DAILY RF: 0 Discharge Data Discharge Date/Time-TO BE ENTERED AT DEPARTURE: 08/24/18 09:53 Medical Decision Making Upon my evaluation, this patient had a high probability of imminent or life- threatening deterioration, which required my direct attention, intervention, and personal management. I have personally provided 76 minutes of critical care time exclusive of time spent on separately billable procedures. Time includes review of laboratory data, radiology results, discussion with consultants, and monitoring for potential decompensation. Interventions were performed as documented above. 73-year-old male with a past medical history of multiple AAA repairs, presents today for evaluation of sudden onset abdominal pain, syncope, and acute distress. EMS brought the patient in after initial 911 call for the symptoms. Upon arrival blood pressure was in the 60s systolic after 500 cc bolus. 2 large-bore IVs were established, bedside ultrasound was concerning for AAA rupture, massive transfusion was started immediately, patient was sent to CT scan, personal review of CT scan demonstrates evidence of rupture of AAA with dissection. [facility] was immediately contacted as well as [facility] for emergent transfer. Case was discussed with Dr.Tianna of vascular surgery in the emergency department. They agreed with the current plan recommended immediate transfer which was already underway. At this point patient has received 4 units of PRBCs, FFP will be added, massive transfusion protocol will continue. Systolic is slightly increased with the patient's PRBCs, currently he is in the 70s, map is 61-68. The patient's mentation is notably improved, and he is maintaining his airway. Oxygen saturation is stable. We will hold off on intubation out of concern for the risk of rapid vascular and pressure decompensation. [facility] does agree with this plan at this. Case has been discussed with the family. Patient will be transferred via dart immediately to [facility] for surgical management. Procedure: Internal Jugular Central Venous Catheter Indication: Hemodynamic monitoring/Intravenous access PROCEDURE SUMMARY: A time-out was performed. The patient?s right neck region was prepped and draped in sterile fashion using chlorhexidine scrub. Anesthesia was achieved with 1% lidocaine. The internal jugular vein was accessed under ultrasound guidance using a finder needle.Venous blood was withdrawn. A guidewire was advanced through the needle. A small incision was made with a 10 blade scalpel and the dilator was advanced over the guidewire until appropriate dilation was obtained. The dilator was removed and a cordis catheter was advanced and secured into place with 1 simple interrupted sutures. At time of procedure completion, all ports aspirated and flushed properly. Post-procedure x-ray shows the tip of the catheter within the superior vena cava. ESTIMATED BLOOD LOSS: 5ml?s The patient tolerated the procedure well there were no complications. Impression: 1. 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 Ascending aorta with intramural hematoma measures 4.4 cm. 2. Anterior pericardial effusion 23 mm. Exam: CT Angiography Abdomen and Pelvis With Contrast EXAM DATE/TIME: 08/24/2018 8:32 AM CLINICAL HISTORY: 73 years old, male; Chest pain; Type not specified; Patient HX: Patient unable to give clinical HX, best images obtained due to patient condition, aaa R/O rupture per er doctor. Technique: Imaging protocol: Axial computed tomographic angiography images of the abdomen and pelvis with intravenous contrast material. 3D rendering: MIP reconstructed images were created and reviewed. Radiation optimization: All CT scans at this facility use at least one of these dose optimization techniques: automated exposure control; mA and/or kV adjustment per patient size (includes targeted exams where dose is matched to clinical indication); or iterative reconstruction. Comparison: CT CHEST WITH CONTRAST 10/18/2015 1:38 PM Findings: VASCULATURE: Aorta: [place] infrarenal abdominal aortic film aneurysm measures 7.6 x 6.8 cm. Celiac trunk and mesenteric arteries: No occlusion or significant stenosis. Renal arteries: No occlusion or significant stenosis. Right iliac arteries: No occlusion or significant stenosis. Left iliac arteries: No occlusion or significant stenosis. Bypass grafts: Status post bypass of the infrarenal abdominal aortic aneurysm. [place] aneurysm measures 7.6 x 6.8 cm. ABDOMEN: Liver: No mass. Gallbladder and bile ducts: Unremarkable. No calcified stones. No ductal dilation. Pancreas: Unremarkable. No mass. No ductal dilation. Spleen: Unremarkable. No splenomegaly. Adrenals: Unremarkable. No mass. Kidneys and ureters: Unremarkable. No solid mass. No hydronephrosis. Stomach and bowel: Findings consistent with constipation Diverticulosis of the rectosigmoid. No diverticulitis. Appendix: No evidence of appendicitis. PELVIS: Bladder: Unremarkable. No mass. Reproductive: Unremarkable as visualized. ABDOMEN and PELVIS: Intraperitoneal space: Unremarkable. No free air. No significant fluid collection. Bones/joints: No acute fracture. No dislocation. Soft tissues: Unremarkable. Lymph nodes: Unremarkable. No enlarged lymph nodes. Impression: Status post bypass of the infrarenal abdominal aortic aneurysm. [place] aneurysm measures 7.6 x 6.8 cm. Dictated and Authenticated by: Ragini Bruce MD. Ordering:ERIC Giordano MD HPI General Date/Time Provider Initiated Documentation: 08/24/18 08:29 . HPI Narrative: This is a 73-year-old male with a AAA that was repaired multiple times in the past most recent time 2 years ago who presents today for acute severe abdominal pain, syncope and hypotension. Symptoms began this morning when he woke up. He did do a significant amount of raking and shoveling yesterday. EMS reported a notably unstable patient, large-bore IVs were started, fluid bolus was started in the field. The patient denies any other complaints at this time. He denies any chest pain headache or focal weakness. No other modifying factors. He is on no blood thinners but he did take his daily aspirin this morning. Previous AAA repair was at [facility]. Related Data Home Medications Medication Instructions Recorded Confirmed Aspirin 1 tab PO DAILY 07/04/12 08/24/18 omega-3 fatty acids-fish oil [Fish 1 ea PO BID 07/27/15 08/24/18 Oil] vitamin B complex 1 ea PO DAILY 09/06/15 08/24/18 losartan-hydrochlorothiazide 1 tab PO DAILY #90 tab 06/26/17 08/24/18 [Hyzaar 100-12.5 Tablet] levothyroxine 137 mcg tablet 137 mcg PO DAILY #90 tab-cap 05/29/18 08/24/18 pravastatin 20 mg tablet 20 mg PO DAILY #90 tab 06/30/18 08/24/18 sertraline 100 mg tablet 100 mg PO DAILY #90 tab-cap 06/30/18 08/24/18 Lactobacillus rhamnosus GG 5 5,000 mmu cells PO DAILY tab 08/08/18 08/24/18 billion cell chewable tablet glucosamine sulfate 500 mg tablet 2,000 mg PO DAILY tab 08/08/18 08/24/18 magnesium oxide 500 mg PO DAILY 08/24/18 08/24/18 Previous Rx's Medication Instructions Recorded losartan-hydrochlorothiazide 1 tab PO DAILY #90 tab 06/26/17 [Hyzaar 100-12.5 Tablet] levothyroxine 137 mcg tablet 137 mcg PO DAILY #90 tab-cap 05/29/18 pravastatin 20 mg tablet 20 mg PO DAILY #90 tab 06/30/18 sertraline 100 mg tablet 100 mg PO DAILY #90 tab-cap 06/30/18 Allergies Allergy/AdvReac Type Severity Reaction Status Date / Time amoxicillin Allergy Verified 08/24/18 10:49 General BRAULIO: 3 Review of Systems Review of Systems All systems reviewed & are unremarkable except as noted in HPI and below PFSH Medical History Tinea pedis (Chronic) Spinal stenosis (Chronic) Right hydrocele (Chronic 07/27/15) Rectal hemorrhage (Chronic 02/28/03) Raised prostate specific antigen (Chronic 02/29/00) Polyp of colon (Chronic 06/01/13) Peripheral neuralgia (Chronic) Non-toxic multinodular goiter (Chronic 02/28/02) Nicotine dependence (Chronic) Hypothyroidism (Chronic 07/28/12) Hyperlipidemia (Chronic) History of tobacco use (Chronic) Headache (Chronic) Essential hypertension (Chronic 01/12/13) Diverticulosis of colon without diverticulitis (Chronic) Depressive disorder (Chronic) Centrilobular emphysema (Chronic 01/04/16) Bilateral inguinal hernia (Chronic) Aortic aneurysm (Chronic) Anal polyp (Chronic) Surgical History S/P AAA repair (Chronic) Repair of inguinal hernia (~1994) Stent placement (~03/2011) Transurethral prostatectomy (~2000) thyroidectomy (~2002) Family History Mother No problems noted. Father No problems noted. Sister Heart disease Maternal Grandfather No problems noted. Son No problems noted. Social History Smoking/Tobacco Use Status: Former Tobacco Use Quit Date: 04/01/98 Tobacco: How many years used: 40 Alcohol Intake: current Alcohol Intake frequency: holidays/special occasions only Drug use: Never Substance use type: does not use Caregiver/Support person: No Household members: spouse Housing: house Communication Needs: None Do you need help understanding health information?: Rarely Pets and animals: No Sexually active: No Do you think of yourself as: straight/heterosexual Current gender identity: male What is your relationship status?: How often do you talk on the phone with friends or family?: three or more times per week How often do you get together with friends or relatives?: decline to answer How often do you attend methodist or advent services?: 1-3 times per year Do you belong to any clubs or organized social groups?: yes Panel score (0-1 are the most socially isolated patients): 3 What type of physical activity do you participate in: other Details: Wellness program Duration: 45-60 minutes/day Frequency: 3-4 times per week Deinta/Mandaeism: Rastafarian Special denita needs: No Seatbelt use: always Helmet use: Yes Helmet use: always Drive intox or ride w/intox retail delivery driver: No Do you feel safe at home: Yes Do you feel safe in your relationship?: Yes Exam Narrative Exam Narrative: 1.Const: Active acute distress, 2.Eyes: PERRL, no conjunctival injection, and symmetrical lids. 3.ENT: Atraumatic external nose and ears. Moist MM. Neck: Symmetric, trachea midline, No thyromegaly. 4.CVS: +S1/S2, Radial pulse on the right +2, radial pulse +1 on the left. Dorsalis pedis faint bilaterally. Delayed capillary refill at the toes 5.RESP: Labored respiratory effort, no wheezes rales or rhonchi. 6.GI: mild distention in the lower abdomen, notably tender throughout. Questionable pulsatile mass 7.MSK: Normocephalic/Atraumatic, Extremities w/o deformity, notable cyanosis of the upper extremities and head., Normal movement of all extremities 8.Skin: dry, pale, diaphoretic 9.Neuro: spray stainer II-XII grossly intact. Sensation grossly intact, no focal neurologic deficits. 10.Psych: In active distress and extremitas Course Lab/Test Results Lab/Test Results: Laboratory Tests Range/Units 08/24/18 08/24/18 08/24/18 08:30 08:30 08:35 WBC (4.4-10.8) k/cumm 7.04 RBC (4.50-6.00) m/cumm 4.22 L Hgb (13.5-17.5) g/dL 14.2 Hct (40.0-50.0) % 42.4 MCV (80-95) fL 100.5 H MCH (27.0-33.0) pg 33.6 H MCHC (32.0-36.0) g/dL 33.5 RDW (11.8-14.1) % 14.2 H Plt Count (130-400) x1000/uL 215 MPV (8.0-11.0) fL 9.3 Immature Gran % 0.3 Neutrophils % 41.6 Lymphocytes % 45.3 Monocytes % 9.5 Eosinophils % 2.6 Basophils % 0.7 Absolute Neutrophils (1.2-6.7) k/cumm 2.93 Absolute Lymphocytes (1.2-3.4) k/cumm 3.19 Absolute Monocytes (0.11-0.7) k/cumm 0.67 Absolute Eosinophils (0.0-0.7) k/cumm 0.18 Absolute Basophils (0.0-0.2) k/cumm 0.05 Sodium (136-145) mmol/L 139 Potassium (3.5-5.1) mmol/L 3.5 Chloride (98-107) mmol/L 105 Carbon Dioxide (21.0-32.0) mmol/L 19.4 L Anion Gap (3-11) mmol/L 14.6 H BUN (7-18) mg/dL 23 H Creatinine (0.70-1.30) mg/dL 1.41 H Estimated GFR/1.73 m2 (mL/min/1.73m2) 49.00 Glucose (70-100) mg/dL 289 H Calcium (8.5-10.1) mg/dL 8.2 L Total Bilirubin (0.2-1.0) mg/dL 0.8 AST (15-37) U/L 29 ALT (12-78) U/L 37 Alkaline Phosphatase (46-116) U/L 63 Troponin I (0.00-0.06) ng/mL Total Protein (6.4-8.2) g/dL 6.0 L Albumin (3.4-5.0) g/dL 3.1 L Patient ABO/Rh O Positive Antibody Screen Negative Crossmatch See Detail Range/Units 08/24/18 08:35 WBC (4.4-10.8) k/cumm RBC (4.50-6.00) m/cumm Hgb (13.5-17.5) g/dL Hct (40.0-50.0) % MCV (80-95) fL MCH (27.0-33.0) pg MCHC (32.0-36.0) g/dL RDW (11.8-14.1) % Plt Count (130-400) x1000/uL MPV (8.0-11.0) fL Immature Gran % Neutrophils % Lymphocytes % Monocytes % Eosinophils % Basophils % Absolute Neutrophils (1.2-6.7) k/cumm Absolute Lymphocytes (1.2-3.4) k/cumm Absolute Monocytes (0.11-0.7) k/cumm Absolute Eosinophils (0.0-0.7) k/cumm Absolute Basophils (0.0-0.2) k/cumm Sodium (136-145) mmol/L Potassium (3.5-5.1) mmol/L Chloride (98-107) mmol/L Carbon Dioxide (21.0-32.0) mmol/L Anion Gap (3-11) mmol/L BUN (7-18) mg/dL Creatinine (0.70-1.30) mg/dL Estimated GFR/1.73 m2 (mL/min/1.73m2) Glucose (70-100) mg/dL Calcium (8.5-10.1) mg/dL Total Bilirubin (0.2-1.0) mg/dL AST (15-37) U/L ALT (12-78) U/L Alkaline Phosphatase (46-116) U/L Troponin I (0.00-0.06) ng/mL 0.05 Total Protein (6.4-8.2) g/dL Albumin (3.4-5.0) g/dL Patient ABO/Rh Antibody Screen Crossmatch
--- NOTE | 2018-08-24 09:42 | DI.VRAD_ITS ---
EXAM: XR Chest, 1 View EXAM DATE/TIME: 08/24/2018 9:20 AM CLINICAL HISTORY: 73 years old, male; Device placement; Other: Centeral line placement TECHNIQUE: Imaging protocol: XR of the chest, 1 view. COMPARISON: CR CHEST ONE VIEW IN RAD DEPT 06/17/2017 10:34 AM FINDINGS: Tubes, catheters and devices: Central line terminates in the superior vena cava. Lungs: Unremarkable. No consolidation. Pleural space: Unremarkable. No pleural effusion. No pneumothorax. Heart/Mediastinum: Prominence of the right paratracheal region consistent with ascending aortic aneurysm. Vasculature: Known dissection of the ascending aorta seen on CT. Bones/joints: Unremarkable. IMPRESSION: 1. Known dissection of the ascending aorta seen on CT. 2. Central line terminates in the superior vena cava. 3. Prominence of the right paratracheal region consistent with ascending aortic aneurysm. Dictated and Authenticated by: Ragini Bruce MD. Ordering:ERIC Giordano MD
[2018-08-24] MEDS: fentaNYL 100 MCG/2 ML VIAL (09:59)
[2018-08-24] MEDS: EPINEPHrine 1 MG/10 ML SYR (10:24)
[2018-08-24] MEDS: Normal Saline Flush 10 ML SYR IVP (10:32)
--- NOTE | 2018-08-24 10:52 | RESPIRATORY ---
08/24/2018-Pt arrived via [facility] on 2 LPM NC SPO2 94%, HR 75, RR 28. Pt was yelling in pain . Complaints of belly pain and hard to breathe. Assisted RN in transporting of Pt to CT . While on CT Scanner bed pt began to complain of tight chest, hard to breathe, pt very anxious. SPO2 94%. O2 was increased to 6 LPM NC . Upon Pt returning to ED he continues to yell out in pain and asking for help with pain. The pt was given reminders to continue to focus on his breathing which seemed to calm him. Around 0930 there is signs of cyanosis as Pt's face, head and ears are purple. Pt is placed on a non-rebreather 15 LPM. 0945 report and hand off to [facility].
--- NOTE | 2018-08-24 15:31 | NUR.NOTE ---
patient arrived at approx 826 am in severe distress due to abdominal and back pain. patient also complained of difficulty breathing. patient's color was cyanotic and ashen. writhing on bed. VS unstable upon arrival. labs drawn, type and screen and crossmatch drawn. First tier response for blood activated with the lab per MDs order. During the time the patient was here, which was approx 1 hour and 34 minutes patient was rapidly transfused with 6 units of PRBC. The first two units were unmatched and the last four were matched to patient's blood type. patient alert and oriented during this time. patient requesting pain medication and it was explained to him that his blood pressure was extremely low and the medication could cause his demise. Family in and out of room with patient. patient talked to son via cell phone. patient comforted by staff by hand holding, coaching patient with his breathing, explaining what was going on. patient stated numerous times I'm not going to make it. advised patient that everyone was working very hard to ensure a successful outcome and [facility] to [facility] for surgery. patient packaged by [employer] crew and left the facility. family was to follow in POV. All remaining blood bags, tags, etc. bagged and transported to the lab for their record keeping. when patient arrived, clothing was cut off and discarded. patient's slippers have been bagged and labeled with his name for family to retrieve.
== END 2018-08-24 09:53 | disposition short-term general hospital (02) ==
PROVIDERS: Nurse Practitioner Family; Emergency Provider Student in an Organized Health Care Education/Training Program; PCP Emergency Medicine
DX: I71.3 Abdominal aortic aneurysm, ruptured (principal); I71.02 Dissection of abdominal aorta; I95.9 Hypotension, unspecified; R23.0 Cyanosis; I30.9 Acute pericarditis, unspecified; R55 Syncope and collapse; I10 Essential (primary) hypertension; Z98.890 Other specified postprocedural states
CPT/HCPCS: 36430; 36556; 71045; 74177; 80053; 86850; 86900; 86901; 86920; 93005; 96361; 96374; 96375; 99291; 99292; 70450; 84484; 85025; 93010; J3010; P9016